=== PATIENT | female | born 1975 | race Caucasian/White ===

== ENCOUNTER → 2020-07-12 | Day surgery (SDC) | payer BC ==
[2020-07-09 11:56] LABS: BASOPHILS # (AUTO) 0.1 (0.0-0.1); BASOPHILS % 0.7 % (0.0-1.0); EOSINOPHILS # (AUTO) 0.2 (0.0-0.4); EOSINOPHILS % 2.8 % (0.0-6.0); LYMPHOCYTES % 26.6 % (18.0-39.1); MEAN CORPUSCULAR HEMOGLOBIN 13.8 pg (28-32); MEAN CORPUSCULAR HGB CONC 23.8 g/dL (31-35); MEAN CORPUSCULAR VOLUME 57.9 fL (81-99); MONOCYTES # (AUTO) 0.4 (0.2-0.8); MONOCYTES % 5.5 % (4.4-11.3); NEUTROPHILS # (AUTO) 4.8 (2.1-6.9); NEUTROPHILS % 64.1 % (38.7-80.0); PLATELET COUNT 313 x10e3/uL (140-360); RED BLOOD COUNT 3.92 x10e6/uL (3.6-5.1); RED CELL DISTRIBUTION WIDTH 24.1 % (11.7-14.4)
[2020-07-09 11:59] LABS: HEMATOCRIT 22.7 % (34.2-44.1); HEMOGLOBIN 5.4 g/dL (12.0-16.0)
--- NOTE | 2020-07-09 12:07 | NUR ---
PTS HGB- 5.0, HCT: 22.7. MURPHY NICHOLS CALL FROM LAB WITH [facility] 07/09/20@ 1201. FAXED TO [facility] 07/09/20@ 120. CALLED DR. ALBERTS OFFICE ( CLOSED FOR LUNCH @ 1209). CALLED DR. ALBERTS CELL @ 1206- LM ON VOICEMAIL WITH LAB RESULTS.
[2020-07-09 12:11] LABS: ANION GAP 9.6 mmol/L (8-16); BLOOD UREA NITROGEN 9 mg/dL (7-26); BUN/CREATININE RATIO 13 (6-25); CALCIUM 8.8 mg/dL (8.4-10.2); CARBON DIOXIDE 24 mmol/L (22-29); CHLORIDE 109 mmol/L (98-107); CREATININE, SERUM 0.67 mg/dL (0.57-1.11); EST GLOMERULAR FILTRATION RATE > 60 ML/MIN (60-); GLUCOSE 106 mg/dL (74-118); POTASSIUM 3.6 mmol/L (3.5-5.1); SODIUM 139 mmol/L (136-145)
--- NOTE | 2020-07-09 12:55 | Diagnostic Imaging Report ---
EXAM: CHEST 2 VIEWS DATE: 07/09/2020 12:15 PM INDICATION: Preoperative evaluation COMPARISON: None FINDINGS: The trachea is midline. The lungs are symmetrically expanded without evidence for large focal consolidation, pneumothorax, or significant pleural effusion. The cardiomediastinal silhouette and pulmonary vasculature are within normal limits. No acute osseous abnormality is identified. The surrounding soft tissues are unremarkable. IMPRESSION: No acute cardiopulmonary process identified. Signed by: Dr. Collins Bhandari MD on 07/09/2020 12:51 PM
--- NOTE | 2020-07-09 14:20 | NUR ---
LISBET MCCLELLAND WITH DR. ALBERTS OF[facility], PT TO SEE PCP CURRY FOR MEDICAL CLEARANCE. PER DR. ALBERTS WILL WAIT TO HEAR PLAN FROM PCP. 07/09/20@ 8022
--- NOTE | 2020-07-11 12:23 | NUR ---
PER DR. RAMOS OF[facility]- PT DOES NOT HAVE MEDICAL CLEARANCE YET. LM WITH DR. ALBERTS [facility] 07/11@ 9439 SPOKED WITH PT, SHE IS STILL AT URGENT CARE AND WAITING TO BE RELEASED. ONCE RELEASE PT TO FOLLOW UP WITH DR. RAMOS TO GET MEDICAL CLEARANCE. ASKED PT TO CALL ME AND DR. HUFF [facility]RY ONCE SHE GETS MEDICAL CLEARANCE. 07/11@ 8403.
[~2020-07-12] MED LIST: ACETAMINOPHEN 1000 MG/100 ML 100 ML IV ONE; BUPIVACAINE HCL 0.5% 10ML MPF VIAL INJ ONE; CEFAZOLIN SOD 1 GM/NS 50ML 100 ML IV ONE; DEXAMETHASONE SOD PHOS INJ 4 MG/ML VIAL ONE; FENTANYL CITRATE/PF 100MCG/2 ML INJ ONE; LIDOCAINE HCL 2% LOCAL INJ 5 ML SDV VIAL INJ ONE; MECLIZINE HCL12.5 MG PO; MIDAZOLAM HCL 2 MG/2 ML VIAL ONE; NEOSTIGMINE 1 MG/ML 10ML VIAL ONE; ONDANSETRON HCL INJ 2MG/ML 2ML 2 MG/ML VIAL ONE; PANTOPRAZOLE SO40 MG PO; PROPOFOL IV EMULSION 10 MG/ML 20 ML VIAL ONE; SEVOFLURANE INHAL SOLN 250 ML PEN BTL ONE
[2020-07-12 10:53] LABS: HEMATOCRIT 29.7 % (34.2-44.1); HEMOGLOBIN 7.7 g/dL (12.0-16.0)
--- NOTE | 2020-07-12 12:17 | Diagnostic Imaging Report ---
OR Fluoroscopy: IMPRESSION: Fluoroscopy service provided in the OR. Interpretation not requested. Signed by: Kamlesh Gold MD on 07/12/2020 12:14 PM
[2020-07-12 13:30] VITALS: BP 149/91
--- NOTE | 2020-07-12 18:04 | Operative Report ---
DATE OF PROCEDURE: 07/12/2020 SURGEON: Cj Lopez DPM ROOM NUMBER: [facility]. PREOPERATIVE DIAGNOSIS: Ruptured posterior tibial tendon on the right foot with accessory ossicle at the navicular right foot. POSTOPERATIVE DIAGNOSIS: Ruptured posterior tibial tendon on the right foot with accessory ossicle at the navicular right foot. TITLE OF THE OPERATION: Kidner procedure with repair of the posterior tibial tendon of the right foot with grafting. ANESTHESIA: General endotracheal. HEMOSTASIS: A right thigh tourniquet at 350 mmHg. PROCEDURE IN DETAIL: The patient was taken to the operating room in a mildly sedated state and placed on the operating table in supine position. Following induction of general anesthetic, the right lower extremity was elevated to 60 degrees to exsanguinate before inflating the pneumatic thigh tourniquet to 350 mmHg to create hemostasis. Right lower extremity was placed on the operating table prior to performing the following procedure: Procedure #1: The Kidner procedure with excision of accessory ossicle and procedure #: Repair of the posterior tibial tendon with grafting. Linear longitudinal incision was made approximately 12 cm in length extending from the central arch all the way proximal to the medial malleolus. Incision was deepened via sharp and blunt dissection on the level of dorsal capsular structure of the fossa and tendon sheath of the posterior tibial tendon. Once this was incised, a tremendous amount of inflammatory tissue tenosynovitis was extruded from that sheath and irrigated away. Significant hypertrophic tissues were present inside and were also debrided away hypertrophic synovium. The attention was directed first distally to the insertion of the posterior tibial tendon into the medial navicular. A large accessory ossicle was noted, which was resected from that area in toto via direct dissection through the tendon, taking care to spare the posterior fibers of the tendon itself. This tendon was then repaired with #2 FiberWire and an anchor of titanium was used into the medial navicular to reapproximate and fixate the tendon to the medial navicular. This having been accomplished, dissection was carried further in more proximal to the medial malleolus, where a very large longitudinal tear was noted. There was significant hypertrophic synovium in that area as well, which was also debrided away. All torn tendon that was nonviable was debrided away and utilizing an incarcerated technique with a running interlocking suture of #2 FiberWire, the ruptured tendon was repaired. A human tissue allograft graft was placed overlying the tendon repair after copious irrigation. Deep closure and capsular repair and paratenon and tendon sheath repair were all done with a combination of 3-0 Vicryl and 4-0 Vicryl. A 4-0 nylon was then used on the skin for closure. The appropriate block with 0.5 Marcaine was performed. The appropriate mildly compressive dressings were applied and posterior splint. The patient left the operating room, vital signs stable in apparent satisfactory condition, having tolerated both the anesthetic and procedure very well. PENNY Weri/CHACHO /[id number]
== END | disposition home or self-care (01) ==
LOC: OR 09:37
PROVIDERS: ATTEND Podiatrist Foot Surgery
DX: M66.871 Spontaneous rupture of other tendons, right ankle and foot (principal); D64.9 Anemia, unspecified; K21.9 Gastro-esophageal reflux disease without esophagitis; Z01.810 Encounter for preprocedural cardiovascular examination; Z01.812 Encounter for preprocedural laboratory examination; Z01.818 Encounter for other preprocedural examination; Z20.828 Contact with and (suspected) exposure to other viral communicable diseases
CPT/HCPCS: 28238; 36415 ×2; 71046; 76000; 80048; 81025; 85014; 85018; 85025; 88304; 88311; 93005; C1713; J0131; J0690; J1100; J2001; J2250; J2405; J2704; J2710; J3010; U0002; V2790